=== PATIENT | female | born 1965 | race Caucasian/White ===

== ENCOUNTER → 2023-03-11 14:17 | Outpatient (BNVA) | payer MEDICARE, MEDICAID, SELFPAY | PROVIDERS: PCP Physician Assistant Medical; Referring Provider Physician Assistant Medical; Visit Provider Student in an Organized Health Care Education/Training Program | DX: M17.11 Unilateral primary osteoarthritis, right knee (principal) | CPT/HCPCS: 99203 ==

== ENCOUNTER 2023-03-21 04:15 | Outpatient (CLI) | payer MEDICARE, MEDICAID, SELFPAY ==
[2023-03-21 15:32] LABS: HCT 33.8 % (36.0-46.0); HGB 11.6 g/dL (11.2-15.7); MCHC 34.3 % (32.0-36.0); MCV 96 fL (80-95); Platelet Count 257 10^3/uL (130-400); RBC 3.52 10^6/uL (3.93-5.22); RDW-SD 41.9 fL; WBC 7.19 10^3/uL (4.4-10.8)
[2023-03-21 16:01] LABS: BUN 19 mg/dL (7-18); CREATININE 1.1 mg/dL (0.55-1.02); Calcium 9.7 mg/dL (8.5-10.1); Chloride 102 mmol/L (98-107); Estimated GFR 58.24 (mL/min/1.73m2); Glucose 97 mg/dL (74-106); Potassium 3.5 mmol/L (3.5-5.1); Sodium 141 mmol/L (136-145)
== END 2023-03-21 04:16 | disposition home or self-care (01) ==
LOC: LBO 04:15
PROVIDERS: PCP Physician Assistant Medical; Visit Provider Student in an Organized Health Care Education/Training Program
DX: M17.11 Unilateral primary osteoarthritis, right knee (principal); Z01.818 Encounter for other preprocedural examination
CPT/HCPCS: 36415; 80048; 85027; 73560; 77073

== ENCOUNTER 2023-03-21 19:22 | Outpatient (CLI) | payer MEDICARE, MEDICAID, SELFPAY ==
--- NOTE | 2023-03-21 14:42 | DI.RAD_ITS ---
Exam(s) XR KNEE RT 1V XR STANDING ALIGNMENT EXAM: XR STANDING ALIGNMENT CLINICAL HISTORY: RIGHT KNEE PAIN. TECHNIQUE: 2D digital imaging was performed. Standing AP views were performed from the pelvis throu gh the ankles. Lateral view of the right knee COMPARISON: CR,DX XR KNEE 3V RT from 09/01/2018 CR XR KNEE RT 1V from 03/21/2023 FINDINGS: BONES: No acute fracture is present. No bony destructive lesion is seen. Leg length discrepancy: The left femoral head projects nearly 1 cm superior to the right. JOINTS: Knees: Severe narrowing of the lateral femoral tibial joint space with prominent periarticula r spurring. There is some valgus angulation. There is prominent spurring at the articular aspect of the patella. The left knee femoral tibial joint spaces are maintained. The ankle joints are unremarkable. The hip joints show mild bilateral joint space narrowing. Mild acetabular spurring. SOFT TISSUE: A regular posterior density could represent loose body. IMPRESSION: Severe degenerative changes of the right lateral femoral tibial joint space.. Approximate 10 millimeter leg length discrepancy. DATA REPOSITORY: RADIATION DOSE DELIVERED:
== END 2023-03-21 19:23 | disposition home or self-care (01) ==
LOC: DIORS 19:30
PROVIDERS: PCP Physician Assistant Medical; Visit Provider Physician Assistant
DX: M17.11 Unilateral primary osteoarthritis, right knee (principal); Z01.818 Encounter for other preprocedural examination
CPT/HCPCS: 73560; 77073

== ENCOUNTER 2023-04-03 07:03 | Day surgery (SDC) | payer MEDICARE, MEDICAID, SELFPAY ==
[2023-04-03] VITALS (15 sets, daily range): BP systolic 101–176; BP diastolic 52–103; PULSE 50–75; RESP 9–17; TEMP 36–37; O2SAT 92–99; BMI 28.5
--- NOTE | 2023-04-03 06:35 | W.ANESPRE ---
General Info Date of Service Date Performed: 04/03/23 Height: 5 ft 4 in Weight: 75.296 kg Body Mass Index (BMI): 28.5 Surgical Procedure: Operation Date: 04/03/23 09:25 Proposed Procedure Side Surgeon p Knee Total Arthroplasty, Cementless CR Right Deo Law MD Meds Allergies and Home Medications Allergies Allergy/AdvReac Type Severity Reaction Status Date / Time Penicillins Allergy Severe Anaphylaxis Verified 04/03/23 07:49 shellfish derived Allergy Severe Anaphylaxis Verified 04/03/23 07:49 codeine Allergy Intermediate Hives Verified 04/03/23 07:49 blackberry Allergy Hives Verified 04/03/23 07:49 aspirin AdvReac Intermediate GI Bleeding Verified 04/03/23 07:49 all berries Allergy Severe anaphlactic Uncoded 04/03/23 07:49 Home Medication Medication Instructions Recorded docusate sodium 100 mg capsule 100 mg PO BID PRN 01/03/23 folic acid 1 mg tablet 1 mg PO DAILY 01/03/23 methadone 10 mg tablet 105 mg PO DAILY 01/03/23 methylphenidate HCl 20 mg tablet 20 mg PO TID 01/03/23 mirabegron 50 mg tablet,extended 50 mg PO DAILY 01/03/23 release 24 hr (Myrbetriq) polyethylene glycol 3350 17 gram 17 g PO DAILY 01/03/23 oral powder packet (Miralax) varenicline 0.5 mg tablet 0.5 mg PO BID 01/03/23 Current Visit Medications: Current Medications Generic Name Dose Route Start Last Admin Trade Name Freq PRN Reason Stop Dose Admin Acetaminophen 1,000 mg 04/03/23 06:00 Acetaminophen 500 Mg Tab PO 05/03/23 05:59 PREOP JAKOB Celecoxib 400 mg 04/03/23 06:00 Celecoxib 200 Mg Cap PO 05/03/23 05:59 PREOP JAKOB Gabapentin 300 mg 04/03/23 06:00 Gabapentin 300 Mg Cap PO 05/03/23 05:59 PREOP JAKOB Tranexamic Acid 1,000 mg/ 60 mls @ 360 mls/hr 04/03/23 06:00 Sodium Chloride IVPB 05/03/23 05:59 PREOP JAKOB Ringer's Solution 1,000 mls @ 80 mls/hr 04/03/23 06:00 IV 05/02/23 23:59 INFUSION JAKOB IV Miscellaneous Supplies 1 each 04/03/23 06:00 Iv Access IV 05/02/23 23:59 DIRECTED JAKOB Sodium Chloride 0 ml 04/03/23 06:00 Normal Saline Flush 10 Ml Syr IV 05/02/23 23:59 PRN PRN Sodium Chloride 0 ml 04/03/23 06:00 Normal Saline 10 Ml Vial IJ 05/02/23 23:59 DIRECTED PRN Sterile Water 0 ml 04/03/23 06:00 Water,Injection,Sterile 10 Ml Vial IJ 05/02/23 23:59 DIRECTED PRN PFSH Active Problems Active Problems: Problem Status Onset Code Arthritis of right knee M17.11 Hypertensive disorder I10 Cervical radiculopathy M54.12 Medical History Medical History Broken neck hx of in 2003 Vitamin D deficiency Hepatitis C carrier Per pt. states tx Vitamin B12 deficiency Urinary incontinence Spinal stenosis in cervical region Pyuria Psoriatic arthritis Psoriasis Obesity Nicotine dependence Lumbosacral radiculopathy History of malignant neoplasm of breast Remission 10+years ago Depressive disorder Closed fracture of cervical vertebra Chronic pain Cervical spondylosis Bladder tumor ADHD Anemia Surgical History Surgical History H/O lumpectomy History of discectomy 1998 History of hysterectomy DOS 03/04/02 H/O laminectomy DOS 04/10/12 History of appendectomy 03/03/18 H/O partial cystectomy 08/07/21 Tobacco Smoking/Tobacco Use Status: Current-Occasional Tobacco Type: cigarettes Alcohol Alcohol Intake: current Alcohol intake frequency: holidays/special occasions only Substance Use Substance use: Occasionally Substance use type: marijuana Vital Signs and Lab Results Lab Results Blood Type / Crossmatch: No Data to Display Complete Blood Count: White Blood Count 7.19 10^3/uL (4.4-10.8) 03/21/23 15:05 Red Blood Count 3.52 10^6/uL (3.93-5.22) L 03/21/23 15:05 Hemoglobin 11.6 g/dL (11.2-15.7) 03/21/23 15:05 Hematocrit 33.8 % (36.0-46.0) L 03/21/23 15:05 Platelet Count 257 10^3/uL (130-400) 03/21/23 15:05 Complete Metabolic Panel: Sodium 141 mmol/L (136-145) 03/21/23 15:05 Potassium 3.5 mmol/L (3.5-5.1) 03/21/23 15:05 Chloride 102 mmol/L (98-107) 03/21/23 15:05 Carbon Dioxide 32.0 mmol/L (21.0-32.0) 03/21/23 15:05 BUN 19 mg/dL (7-18) H 03/21/23 15:05 Creatinine 1.1 mg/dL (0.55-1.02) H 03/21/23 15:05 Est GFR (CKD-EPI 2020) 58.24 (mL/min/1.73m2) 03/21/23 15:05 Calcium 9.7 mg/dL (8.5-10.1) 03/21/23 15:05 Glucose 97 mg/dL (74-106) 03/21/23 15:05 Liver Function Panel: No Data to Display Coagulation Panel: No Data to Display Cardiac Panel: No Data to Display Arterial Blood Gas: No Data to Display Venous Blood Gas: No Data to Display Pancreas Panel: No Data to Display Thyroid Panel: No Data to Display Infectious Disease: No Data to Display Blood Cultures: No Data to Display Toxicology Panel: No Data to Display Anesthesia Assessment and Plan Anesthesia History Personal History: No History of Anesthesia Complications Family History: No Family History of Anesthesia Complications Exercise Tolerance Exercise Tolerance: Metabolic Equivalents>4 Cardiac & Pulmonary Exam Cardiac Exam: Normal S1/S2 Heart Sounds Pulmonary Exam: Clear Bilateral Breath Sounds Implantable Cardiac Device Does patient have a Pacemaker or an ICD?: No Airway Exam Known Difficult Airway: No Mallampati Class: 4 Mouth Opening: Narrow (< 3cm) Thyromental Distance: Greater than 3 cm Neck Range of Motion: Limited ROM Neck Circumference: Normal Teeth Condition: Edentulous ASA Classification ASA Score: ASA 2 Emergency Case?: No NPO Status NPO Status: NPO Clears >2 hours, Solids >8 hours Anesthesia Plan Resuscitation Status: Full Code Anesthesia Technique: Spinal Anesthesia Airway Planned: Natural Airway Pain Management: Surgeon and patient request nerve block Monitors Used: Standard Monitors Preoperative Comments:: 57 yo female for TKA. Sig PMHx: cervical spondylosis/stenosis/c spine fracture 2003, hep c (tx), depression, methadone (105 mg/daily), ADHD, anemia, occ smoker/EtOH/cannabis. Concerned about her back given previous surgeries. back US with a few fair spinal locations. Discussed risks, benifits of spinal vs GA. Will plan on attempting spinal and GA as a back up.
[2023-04-03] MEDS: Acetaminophen 500 MG TAB 1000 MG PO ×2 (07:54→15:29)
[2023-04-03] MEDS: Gabapentin 300 MG CAP PO (07:54)
[2023-04-03] MEDS: Lactated Ringers 1,000 ML 80 ML IV (08:08)
--- NOTE | 2023-04-03 08:45 | W.ANESNERVE ---
Nerve Block Single Injection Procedure Date and Time Date Performed: 04/03/23 Procedure Start: 08:38 Location Where Procedure Performed Procedure Location: Day Surgery Unit Reason Performed: Postoperative Analgesia Requesting Provider: Deo Law Timeout Performed Timeout Performed: Yes Monitoring Used ECG, Blood Pressure and SpO2 Sterility Sterility: Hand Hygiene, Surgical Cap, Surgical Mask, Sterile Gloves and Chlorhexidine Sedation Given During Procedure Sedation Given (Indicate Dose Given): Versed IV Dose:: 2 mg Patient Mental Status Patient Mental Status: Sedate with meaningful communication Nerve Block 1st Nerve Block: Laterality: Right Block Type: Adductor Canal Ultrasound Image Saved?: Yes Needle / Catheter Used: 100mm SonoPlex II Local Anesthetic Bolus (Indicate Dose Given): Bupivacaine 0.25% Dose:: 7 mL Additives (Indicate Dose Given): None Ultrasound: Sterile probe cover and gel used Nerve Stimulator: Supplement to Ultrasound use and No twitch or parasthesia noted < 0.5 mA Paresthesia: None Procedure Tolerated: No Complications Procedure Outcome: Successful Performed By: Nigel Powell 2nd Nerve Block: Laterality: Right Block Type: Other Ultrasound Image Saved?: Yes Needle / Catheter Used: 100mm SonoPlex II Local Anesthetic Bolus (Indicate Dose Given): Injected in 3-5ml increments after negative blood aspiration and Bupivacaine 0.25% Dose:: 6 mL Additives (Indicate Dose Given): None Ultrasound: Sterile probe cover and gel used Nerve Stimulator: Supplement to Ultrasound use and No twitch or parasthesia noted < 0.5 mA Paresthesia: None Procedure Tolerated: No Complications Procedure Outcome: Successful Performed By: Nigel Powell
[2023-04-03] MEDS: ceFAZolin 2 GM/50 ML BAG IVPB (10:26)
--- NOTE | 2023-04-03 13:10 | W.ANESPOSTOP ---
Postoperative Evaluation Date, Time and Location Date Performed: 04/03/23 Time Performed: 13:10 Patient Location: PACU Vital Signs Most Recent Imported Vital Signs: Most Recent Vital Signs Temp Pulse Resp BP Pulse Ox 36.4 C L 54 L 11 L 101/52 L 93 04/03/23 13:07 04/03/23 13:07 04/03/23 13:07 04/03/23 13:07 04/03/23 13:07 Pain Score Most Recent Pain Score: Most Recent Pain Score Pain Level 0 04/03/23 08:34 Assessment Mental Status: Awake (Alert & Oriented to Patient Baseline) Airway and Respiratory Function: Patent airway with normal (patient baseline) respiratory exam Cardiovascular Function: Hemodynamically Stable Hydration Status: Adequately Hydrated Nausea & Vomiting: No Nausea or Vomiting Pain: Pain is tolerable per patient Peripheral Nerve Block: Patient did not receive a nerve block
[2023-04-03] MEDS: fentaNYL 100 MCG/2 ML VIAL IVP ×2 (13:50→14:03)
[2023-04-03] MEDS: oxyCODONE 10 MG TAB PO (13:57)
--- NOTE | 2023-04-03 14:26 | W.PM.DSUDISC ---
Date of service: 04/03/23 Time of Service: 14:26 Discharge Plan Disposition Patient Disposition: Home Condition: Good Discharge Details Reason For Visit: R TKR Attending Provider: Deo Lwa Primary Care Provider: Sarah Strauss Home Meds and New Rx's Prescriptions: New acetaminophen 500 mg tablet 1,000 mg PO TID Qty: 90 3RF aspirin 81 mg tablet,delayed release (DR/EC) 81 mg PO BID Qty: 60 0RF celecoxib 200 mg capsule 200 mg PO BID Qty: 60 0RF dexamethasone 4 mg tablet 4 mg PO DAILY Qty: 2 0RF gabapentin 300 mg capsule 300 mg PO QHS Qty: 14 0RF pantoprazole 40 mg tablet,delayed release (DR/EC) 40 mg PO DAILY Qty: 30 0RF oxycodone 10 mg tablet 10 mg PO Q4H MDD 6 tabs PRN (Reason: pain) Qty: 20 0RF Continued docusate sodium 100 mg capsule 100 mg PO BID PRN folic acid 1 mg tablet 1 mg PO DAILY methadone 10 mg tablet 105 mg PO DAILY methylphenidate HCl 20 mg tablet 20 mg PO TID Myrbetriq 50 mg tablet extended release 24 hr 50 mg PO DAILY polyethylene glycol 3350 [Miralax] 17 gram powder in packet 17 g PO DAILY varenicline 0.5 mg tablet 0.5 mg PO BID Rx Instructions: administer on days 4, 5, 6, and 7 of therapy Discharge Instructions Additional Instructions: Total Knee Discharge Instructions Activity: The most important activity is to walk and to work on gentle motion (both flexion and extension). You should try to take short walks a few times a day. It is important that when resting you work on keeping the knee straight. Avoid putting a pillow behind the knee as this will encourage flexion. Work on range of motion exercises as provided by Physical Therapy. - Start outpatient physical therapy within 2 weeks. - You should wear the THOMAS hose on both legs for 2 weeks. You may remove these at night. You may also use any compression sock in place of the THOMAS hose. - Utilize [employer] to review exercises, see videos on exercises and obtain basic information pertaining to your surgery and your recovery. Dressing: Remove the Dwayne wrap by 2 days after your surgery and put on the THOMAS stocking given to you from the hospital. Keep the surgical dressing (underneath the DWAYNE wrap) in place for at least one week. After the first week it may be removed and replaced with light gauze and tape or nothing. The wound and dressing may get wet after 3 days but avoid soaking the dressing or otherwise it will need to be changed. Many people prefer covering the dressing with cling wrap (saran wrap) to minimize it from getting soaked. If it gets wet, just pat dry. If it starts to peel off then it will need to be changed. Medications: - You should take Tylenol and anti-inflammatory Celebrex as your primary pain control medications. If the Celebrex is too expensive or not covered, please call the office for another alternative (Advil/Ibuprofen or Naproxen/Aleve) - You have been prescribed a stronger pain medication Oxycodone for breakthrough pain, take as needed as prescribed. - You have also been prescribed a stomach acid reduction agent Pantoprozole to help reduce stomach acid and reflux. - You have been prescribed Gabapentin to take at night for restlessness and nerve pain. - You will be taking Aspirin 81mg twice a day for DVT prevention unless instructed otherwise. - You have also been prescribed Decadron to take to control post-operative nausea and pain. You will start this tomorrow. - If you have constipation you should take Colace or Miralax (both [id number]). It takes most people 3-4 days to have a bowel movement. Follow-up: 2 weeks If you have any acute concerns or questions, please do not hesitate to contact the office at [phone]. You may contact Dr. Law with any questions after hours through the hospital at [phone] or on his cell phone at [phone]. Stand Alone Forms: Anesthesia Discharge Inst., [place].Nerve Block Instructions, Omayra Garcia ([facility]) Referrals: Deo Law MD [ [facility] STAFF PHYSICIAN] - 04/18/23 1:00 pm Equipment/Supplies: Walker Activity:: Activity as Tolerated Shower/Bathe:: 72 hours Diet:: As Tolerated
[2023-04-03] MEDS: Normal Saline 10 ML VIAL IJ (14:38)
[2023-04-03] MEDS: HYDROmorphone 2 MG/ML SYR IVP (14:38)
--- NOTE | 2023-04-03 15:19 | IN_ITS ---
PT Notes Visit Reasons: R TKR Physical Therapy Day Surgery Initial Evaluation Date: 04/03/2023 Referring Doctor: ANAYA Her PT Orders: PT CONSULT: S/P Ortho surgery Precautions: WBAT on right LE with AD. Patient Profile/Admitting Diagnosis: Stefanie is a 57-year-old female with degenerative joint disease of the right knee and status post right total knee arthroplasty on postoperative day 0. PMHX: Medical History (Updated 03/12/23 @ 21:41 by Deo Law MD) Vitamin D deficiency Hepatitis C carrier Vitamin B12 deficiency Urinary incontinence Spinal stenosis in cervical region Pyuria Psoriatic arthritis Psoriasis Obesity Nicotine dependence Lumbosacral radiculopathy History of malignant neoplasm of breast Depressive disorder Closed fracture of cervical vertebra Chronic pain Cervical spondylosis Bladder tumor ADHD Anemia Surgical History (Updated 01/03/23 @ 13:25 by Jese Harding RN) H/O lumpectomy History of discectomy 1998 History of hysterectomy DOS 03/04/02 H/O laminectomy DOS 04/10/12 History of appendectomy 03/03/18 H/O partial cystectomy 08/07/21 Social History/Home Situation: Lives with significant other and in a private home with 3 steps to enter with a rail on one side. Modified independent with use of front wheeled walker. Equipment Owned/DME: [facility], Subjective: Reported 8/10 painin the R knee at the start but pain level decreased with mobility performance to about 6-7/10. Denied headache, chest pain, and lighthea dedness throughout session. Objective: General Observation: JESSICA wraps to right LE. Cryocuff to right knee. TEDS to left leg. Mental Status: Alert and oriented x 4 Pain: As above ROM: Right Lower Extremity: Hip flexion WFL. Hip abduction WFL. Knee flexion 30 degrees to 90 degrees. Knee extension -30 degrees. Ankle dorsiflexion WFL. Ankle plantarflexion WFL. Left Lower Extremity: Hip flexion WFL. Hip abduction WFL. Knee flexion WFL. Ankle dorsiflexion WFL. Ankle plantarflexion WFL. Strength: Right Lower Extremity: Hip flexors 4/5. Hip abductors 4/5. Knee flexors 3-/5. Knee extensors 3-/5. Ankle dorsiflexors 4/5. Ankle plantarflexors 5/5. Left Lower Extremity:Hip flexors 5/5. Hip abductors 5/5. Knee flexors 5/5. Knee extensors 5/5. Ankle dorsiflexors 5/5. Ankle plantarflexors 5/5. Sensation: Intact as to pain and light pressure in B LE Bed Mobility/Transfers: Moderate cueing provided for use of B hands as needed for support, movement sequence, AD management, and posture to reduce fall risk and minimize pain report Sit to stand contact-guard assist with FWW Stand to sit contact-guard assist with FWW Bed to chair contact-guard assist with FWW Gait: Facilitated safe and correct performance of level surface ambulation covering a distance of 50 feet using front wheeled walker with step to gait pattern requiring contact-guard assist of PT and Nurse Dolores, wheelchair follow provided by significant other Rich for safety. Good quad activation. No LOB. Moderate cueing provided for increasing right knee flexion during swing, AD management, and posture to reduce fall risk and minimize pain report. Stairs: Guided patient with safe and correct negotiation of 6 x 4-inch steps and 4 x 6- inch steps while holding onto bilateral rails with step to gait pattern requirin g moderate verbal cueing to increase flexion during each ascent of the right and for overall movement sequence. Balance: Static Sitting: Normal Dynamic Sitting: Normal Static Standing: Fair Dynamic Standing: Fair Special Tests: Mobility Limitations Standardized Measure [facility] AM-PAC 6 clicks Basic Mobility Inpatient Short Form: Raw Score: 18 CMS Score: 47% deficit Informed Consent/Education: Patient instructed in purpose of PT consult. Packet containing TKA trained patient with correct performance of exercises below to maximize motor control, joint flexibility, soft tissue extensibility of the R knee musculature: Access Code: [email or web address] URL: [email or web address] Date: 04/03/2023 Prepared by: Barbara El Exercises - Supine Quad Set - 1 x daily - 7 x weekly - 1 sets - 10 reps - 5 hold - Supine Heel Slide - 1 x daily - 7 x weekly - 1 sets - 10 reps - 5 hold - Supine Ankle Pumps - 1 x daily - 7 x weekly - 1 sets - 10 reps - 5 hold - Small Range Straight Leg Raise - 1 x daily - 7 x weekly - 1 sets - 10 reps - 5 hold - Seated March - x daily - 7 x weekly - 1 sets - 10 reps - 5 hold Exercise protocol has been given to patient. Education and training on initial set of exercises that can be done at home have been completed with patient. Assessment: Patient requires use of a front wheeled walker for mobility ADL performance to maximize independence and reduce fall risk. Will have the full support of her significant other at home as she recovers. Patient presents with clinical signs and symptoms consistent with current/admitting diagnoses that have resulted to mobility limitations, gait instability, generalized weakness, and impairment of motor control as demonstrated by the following impairment level findings: 1. Decreased strength to R knee major muscle groups 2. Impaired standing balance 3. Limitation of joint range of motion in R knee Impairments are contributing to the following functional limitations: 1. Inability to safely ambulate without assistive device 2. Increase completion time for mobility ADL performance 3. Increased fall risk Patient is assessed as a 03739 moderate complexity based on the following: History: 57-year-old female with impairment level findings, functional limitations, and past medical history as indicated above Examination: Demonstrable impairment in strength, balance, and mobility level with underlying impairments and functional limitations as documented above Presentation: Evolving Decision Makin moderate complexity Goals: N/A. PT evaluation and 1-2 treatment sessions only for functional mobility training using recommended AD and for HEP instruction. Plan of Care/Treatment Plan: N/A. PT evaluation and 1-2 treatment session only for functional mobility training using recommended AD and for HEP instruction. DISCHARGE RECOMMENDATIONS: Home when medically cleared by orthopedic surgeon. Recommend outpatient PT services in order to optimize functional mobility outcomes and facilitate return to independent community ambulation without an assistive device. No pillow under R knee. Alternate walking with performing exercises every two hours to keep knee joint flexibility in prepapration for OP PT. TREATMENT CODE/TIME: 10687 x 20 minutes for 1 unit, 80356 x 31 minutes for 2 units beginning at 15:19 PM. Thank you for the opportunity to participate in the care of this patient. Please sign an return this page within 30 days if you agree with the above POC. Thank you! Physician Signature Date [facility] Barbara El PT, DPT, CLT [facility] [place], [place]
--- NOTE | 2023-04-03 17:11 | ROE_ITS ---
Date of service: 04/03/23 Time of Service: 10:45 Operative Note Operative Note DATE OF PROCEDURE: 04/03/23 PRE-OP DIAGNOSIS: Right Knee Osteoarthritis POST-OP DIAGNOSIS: same PROCEDURE: Right Total Knee Replacement SURGEON: Deo Law CONCAVING MACHINE OPERATOR: Gisselle Quiroz ANESTHESIA TYPE: Spinal Refer to Anesthesia Record ESTIMATED BLOOD LOSS: 200 PATHOLOGY: none sent TOURNIQUET TIME: 0 COMPLICATIONS: None Patient was transported to: PACU Patient's condition: stable Implants: 1. Depuy Attune Cementless Cruciate Retaining Femoral Component, Size 5 2. Depuy Attune Cementless Fixed Bearing Tibial Component, Size 5 3. Depuy Attune 5x8mm CR/FB Poly 4. Depuy Attune Patellar Component, Size 35 Indications: I have seen Stefanie in clinic for symptoms of knee arthritis, confirmed with radiographic findings. Stefanie has exhausted nonoperative methods and was having significant limitations in daily function and desired better function and less pain. I discussed the technical details of a knee replacement. I explained the risks of the procedure to include, but not limited to, bleeding, infection, pain, stiffness, fracture, damage to nerves and vessels, damage to muscles and tendons, loosening, need for repeat procedure, blood clot and cardiopulmonary demise. Despite these risks, she elected to proceed. Findings: There was significant signs of arthritis throughout the knee with a significant preoperative flexion contracture of nearly 30 degrees. Procedure Description: Stefanie was greeted in the preoperative holding area where the correct side was identified and marked. The consent was reviewed with the patient and signed. The history and physical was updated. All questions were answered. Preoperative medications were administered: Acetaminophen 1000mg, Celebrex 400mg, and Gabapentin 300mg. An adductor canal block was then administered by the anesthesia team in [facility]. Stefanie was taken back to the operating room. A spinal anesthestic was then admin istered. The patient was placed into the supine position on the operating room table. A nonsterile tourniquet was placed high onto the leg but only used for cementing. Posts were placed for positioning during the procedure. All bony prominences were well padded. Prophylactic antibiotics in the form of Cefazolin were administered. 1g of Tranxemic Acid was given intravenously within 30 minutes of incision. The right leg was then prepped with Chloraprep and draped in a standard fashion with impervious stockinette. A second prep with Chloraprep was performed prior to application of Iodine impregnated skin protection. A timeout to confirm correct identity, side and site, procedure, allergies, anesthesia, and medical concerns was performed. With the knee in some flexion, a midline incision was made overlying the knee. Full thickness skin flaps were raised once the extensor mechanism was encountered. These were raised medially and laterally. Any bleeding was controlled with electrocautery. Once the extensor mechanism was fully exposed, a medial parapatellar arthrotomy was performed in a flexed position. All bleeding from the arthrotomy and the geniculate arteries was coagulated. A medial subperiosteal peel was performed with electrocautery to the midcoronal plane. The fat pad was removed while keeping the patellar tendon protected. The anterior distal femur synovium was removed for later visualization. The ACL and PCL were resected and the anterior horn of the lateral meniscus was transected. The knee was then flexed with the patella everted. Large osteophytes from the tibia were removed. Large osteophytes from the femur were removed. Using a step drill, and based on preoperative templating, the femoral canal was entered. This was done with a step drill without any difficulty. The intramedullary distal femoral cut guide was inserted, set to a 6 degree valgus cut and 11mm cut thickness. The distal femoral cut guide was then held in position and pinned. With the soft tissues protected, the distal cut was performed. This was passed over a few times to ensure a planar cut. I then turned attention to the tibia. The extramedullary guide was placed onto the leg. The distal aspect was slid medial to adjust for position of center of ankle and stay in line with shaft of the tibia. Approximately 3-5 degrees of posterior slope was kept in the proximal cutting guide. The center of the guide was aligned with the PCL. The stylus was used to assess cut thickness. The lateral side, most involved side, was set for a 4mm cut. This was then held in position and pinned into place with 2 additional pins and a cross pin for stability. The medial and lateral collateral ligaments were protected and the cut was performed. With this completed, it was assessed and noted to be of appropriate dimensions. The guide was removed. A spacer block was inserted and the knee was brought into extension. The 6mm spacer block provided full extension, without hyperextension and with stability of both the medial and lateral collateral ligaments was assessed. The pins from the femur and the tibia were then removed. The distal femur was then sized. The anterior stylus was placed onto the lateral ridge of the anterior femur. This indicated a size 5 femur. The external rotation of the guide was adjusted to 3 degrees to match the epicondylar axis, perpendicular to Hamilton?s line. The 4-in-1 cutting guide was the placed. The posterior medial femur cut was evaluated and appeared of good thickness. The spacer block was inserted underneath the cutting guide and stability was confirmed in 90 degrees of flexion. An teresita wing was used to confirm appropriate position of the anterior cut to avoid notching. This cutting guide was ensured to be flush on the cut surface and then pinned into place with headed pins. While protecting the soft tissues, quad tendon, and collateral ligaments, the anterior and posterior cuts were performed with a saw. The central two pins were removed and the posterior and anterior chamfers were cut next. Posterior osteophytes in the posterior capsule were resected with curved osteotome and rongeur. The notch-cutting guide was placed. This was pinned to lateralize the femoral component as much as possible while keeping it flush on the cut surface. This was then pinned into position. A reciprocating saw was used to make the notch cut. A rasp smoothed the cut surfaces. The medial and lateral menisci were removed. A trial femoral component was then inserted, impacted down to the cut surfaces, and the lug holes were drilled. A provisional trial tibial component was placed and the knee was brought through range of motion. The polyethylene was trialed until there was good flexion and extension with excellent stability to the medial and lateral collaterals. The patella was tracking without thumbs. A size 8mm polyethylene component provided the best range of motion and stability with less than 2mm gapping with medial and lateral stress and full extension without significant hyperextension. The tibial cut surface was fully exposed. The tibia was then sized as a 5. The tibia had been previously marked during trialing to correspond to the center of the tibial component to help with rotation. The trial was aligned to this gisselle, approximately rotated to the medial 1/3rd of the tibial tubercle. The trial was pinned into place. The tibia was prepared with a reamer and a keel punch and lug holes. The knee was then brought into extension and the patella was measured as 25mm. Using the patellar clamp and cut guide, this was resected to a flat surface with at least 13mm of thickness remaining. The size 35 patella fit the best. This was oriented and then clamped into position. The lugs were drilled. The trial components were removed. The final components were opened on the back table. The periosteal and capsular tissues, especially posteriorly, around the knee were then systematically injected with a periarticular cocktail consisting of 246mg of Ropivacaine, 0.5mg of Epinephrine, 0.08mg of Clonidine, and 30mg of Ketorolac, diluted to 100cc. On the back table, with the implants opened, the cement was mixed. One batch of high viscosity cement was prepared with vacuum assistance. After the cement was ready a small amount was placed on the cut surface of the patella and the patellar button was clamped into position and held. While the cement was hardening, the cementless knee components were placed. Starting with the tibial component, the tibia was subluxed anteriorly and the lug holes of the component were lined up. The tibia was then impacted with an impactor and mallet until the tibial component was in contact with the tibia. The final polyethylene component was inserted. Then, the femoral component was inserted. The lug holes were aligned and the component was impacted into position. The knee was irrigated with Surgiphor Betadine solution. This was allowed to sit in the knee for 3 minutes and then it was irrigated out with saline. After the cement had finally cured, approximately 15min, the clamp was removed from the patella and the knee was taken through range of motion. The patella was tracking with a no-thumbs technique. The capsule was then reapproximated with a No. 1 Vicryl at multiple locations. The capsule was finally closed with a No. 2 Stratafix, barbed suture. The second dosing of 1g TXA was started. Deep tissues were then reapproximated with 0 Vicryl and 2-0 Vicryl. The skin was closed with a running 3-0 Monocryl in a subcuticular fashion. This was reinforced with skin glue. A Mepilex silver dressing was applied along with a [id number] JESSICA wrap. A CryoCuff was applied. Stefanie was transferred to the hospital bed without difficulty an suffering no apparent complication. Stefanie has a gaurded prognosis due to her Methadone usage, narcotic history and significant preoperative flexion contracture. Physical therapy will start today and without restrictions, weight-bearing as tolerated. Aspirin 81mg BID will be used for DVT prophylaxis.
== END 2023-04-03 17:03 | disposition home or self-care (01) ==
PROVIDERS: PCP Physician Assistant Medical; Visit Provider Student in an Organized Health Care Education/Training Program
PROC: (CPT 27447; principal; 2023-04-03 09:15)
DX: M17.11 Unilateral primary osteoarthritis, right knee (principal); I10 Essential (primary) hypertension; M54.12 Radiculopathy, cervical region; Z85.3 Personal history of malignant neoplasm of breast
CPT/HCPCS: 27447; C1776; 76942; 97162; 97530; J0665; J0690; J1100; J1170; J2250; J2401; J2405; J2704; J3010; J3475

== ENCOUNTER 2023-04-18 13:54 | Outpatient (CLI) | payer MEDICARE, MEDICAID, SELFPAY ==
--- NOTE | 2023-04-18 13:00 | DI.RAD_ITS ---
Exam(s) XR KNEE RT 1V XR STANDING ALIGNMENT EXAM: XR STANDING ALIGNMENT and XR knee RT 1 V CLINICAL HISTORY: 1ST POST OP S/P R TKA. TECHNIQUE: 2D digital imaging was performed. Five images were obtained. COMPARISON: CR XR STANDING ALIGNMENT from 03/21/2023 CR XR KNEE RT 1V from 03/21/2023 FINDINGS: BONES: There is mild superior joint space narrowing in the hips bilaterally. The patient is now stat us post right total knee replacement. The orthopedic hardware appears in good position. There is mi ld persistent soft tissue swelling around the right knee. The left knee is well maintained. The ank les are well maintained.There is no significant leg length discrepancy. SOFT TISSUE: Normal. IMPRESSION: Status post right total knee replacement. Mild soft tissue swelling around the knee. DATA REPOSITORY: RADIATION DOSE DELIVERED:
== END 2023-04-18 13:55 | disposition home or self-care (01) ==
LOC: DIORS 13:54
PROVIDERS: PCP Physician Assistant Medical; Referring Provider Physician Assistant Medical
DX: Z96.651 Presence of right artificial knee joint (principal); Z47.1 Aftercare following joint replacement surgery
CPT/HCPCS: 73560; 77073

== ENCOUNTER → 2023-05-20 13:23 | Outpatient (BNVA) | payer MEDICARE, MEDICAID, SELFPAY | PROVIDERS: PCP Physician Assistant Medical; Referring Provider Physician Assistant Medical; Visit Provider Student in an Organized Health Care Education/Training Program | DX: Z47.1 Aftercare following joint replacement surgery (principal); Z96.651 Presence of right artificial knee joint ==

== ENCOUNTER → 2023-07-01 13:21 | Outpatient (BNVA) | payer MEDICARE, MEDICAID, SELFPAY | PROVIDERS: PCP Physician Assistant Medical; Referring Provider Physician Assistant Medical | DX: Z47.1 Aftercare following joint replacement surgery (principal); Z96.651 Presence of right artificial knee joint ==

== ENCOUNTER 2024-04-06 13:32 | Outpatient (CLI) | payer MEDICARE, MEDICAID, SELFPAY ==
--- NOTE | 2024-04-06 12:45 | DI.RAD_ITS ---
Exam(s) XR KNEE RT 2V AP,LAT EXAM: XR KNEE RT 2V AP,LAT INDICATION: ANNUAL F/U R TKA. COMPARISON: CR XR KNEE RT 1V from 04/18/2023 CR XR STANDING ALIGNMENT from 04/18/2023 TECHNIQUE: 2D digital imaging was performed. Two views. FINDINGS: There is stable alignment of the total knee prosthesis. There are no surrounding abnormal bony lucen cies. The amount of soft tissue swelling has decreased from the prior exam. DATA REPOSITORY: RADIATION DOSE DELIVERED:
== END 2024-04-06 13:33 | disposition home or self-care (01) ==
LOC: DIORS 13:32
PROVIDERS: PCP Physician Assistant Medical; Referring Provider Physician Assistant Medical; Visit Provider Student in an Organized Health Care Education/Training Program
DX: Z47.1 Aftercare following joint replacement surgery (principal); Z96.651 Presence of right artificial knee joint
CPT/HCPCS: 99213; 73560